=== PATIENT | female | born 1985 | race Asian ===

== ENCOUNTER 2025-05-26 08:43 | Outpatient (CLI) | payer MEDICAID ==
--- NOTE | 2025-05-26 10:09 | RADIOLOGY REPORT ---
INDICATION: UTERINE POLYP TECHNIQUE: Multiple real-time grayscale transabdominal sonographic images along with color and duplex Doppler of the uterus and ovaries were obtained. COMPARISON: None FINDINGS: The uterus measures 7.1 x 4.0 x 4.8 cm. The endometrial stripe measures 1.1 cm. Right ovary measures 2.8 x 1.9 x 2.8 cm with normal Doppler color flow. Right ovarian follicle measures 1.6 cm. Left ovary measures 2.2 x 1.5 x 1.6 cm with normal Doppler color flow IMPRESSION: Nonspecific thickened appearance to the endometrium. This may be within normal limits for a premenopausal patient. Clinical correlation advised.
== END 2025-05-26 23:59 | disposition home or self-care (01) ==
LOC: RAD 08:43
PROVIDERS: ATTEND Physician Assistant
DX: R93.89 Abnormal findings on diagnostic imaging of other specified body structures (principal); N84.0 Polyp of corpus uteri; N88.8 Other specified noninflammatory disorders of cervix uteri
CPT/HCPCS: 76830; 76856; 93976